=== PATIENT | female | born 1975 | race Caucasian/White ===

== ENCOUNTER 2018-11-11 06:07 | Day surgery (SDC) | payer BC ==
[2018-11-05 14:50] LABS: CLARITY,URINE CLEAR (Clear); COLOR,URINE YELLOW (Yellow); GLUCOSE, URINE NEGATIVE (Neg); KETONES,URINE NEGATIVE (Neg); LEUKOCYTE ESTERASE ,URINE NEGATIVE (Neg); NITRITES, URINE NEGATIVE (Neg); OCCULT BLOOD,URINE NEGATIVE (Neg); PH,URINE 5.5 (4.8-8.0); PROTEIN,URINE NEGATIVE (Neg); UROBILINOGEN,URINE 0.2 E.U/dL (0.2-1.0)
[2018-11-05 14:56] LABS: UA COLLECTION TYPE VOIDED
[2018-11-05 15:24] LABS: BASOPHILS # (AUTO) 0.1 X10'3 (0-0.2); BASOPHILS % (AUTO) 0.7 % (0-1); EOSINOPHILS # (AUTO) 0.1 X10'3 (0-0.9); EOSINOPHILS % (AUTO) 1.1 % (0-6); LYMPHOCYTES # (AUTO) 2.1 X10'3 (1.1-4.8); LYMPHOCYTES % (AUTO) 24.6 % (21-51); MEAN CORPUSCULAR HEMOGLOBIN 29.6 PG (27.0-31.0); MEAN CORPUSCULAR HGB CONC 32.7 g/dL (33.0-36.5); MEAN CORPUSCULAR VOLUME 90.3 FL (78-98); MEAN PLATELET VOLUME 8.5 FL (7.4-10.4); MONOCYTES # (AUTO) 0.3 X10'3 (0-0.9); NEUTROPHILS # (AUTO) 5.9 X10'3 (1.8-7.7); NEUTROPHILS % (AUTO) 70.6 % (42-75); PRE OP HEMATOCRIT 41.3 % (35.0-45.0); PRE OP HEMOGLOBIN 13.5 g/dL (12.0-16.0); PRE OP PLATELET COUNT 309 X10'3 (140-440); RED BLOOD COUNT 4.58 X10'6 (4.20-5.60); RED CELL DISTRIBUTION WIDTH 13.6 % (11.5-14.5)
[2018-11-05 15:35] LABS: ALBUMIN 3.2 G/DL (3.4-5.0); ALBUMIN/GLOBULIN RATIO 0.8 (1.1-1.5); ALKALINE PHOSPHATASE 89 IU/L (46-116); BLOOD UREA NITROGEN 29 MG/DL (7-18); BUN/CREATININE RATIO 37.7 (6.6-38.0); CALCIUM 9.5 MG/DL (8.5-10.1); CHLORIDE 104 MMOL/L (99-107); CREATININE 0.77 MG/DL (0.40-0.90); PRE OP ALT 70 U/L (30-65); PRE OP ANION GAP 7 (8-16); PRE OP AST 67 U/L (10-37); PRE OP BILIRUB, TOTAL 0.4 MG/DL (0.0-1.0); PRE OP GLUCOSE 97 MG/DL (70-104); PRE OP POTASSIUM 3.7 MMOL/L (3.4-5.1); PRE OP SODIUM 141 MMOL/L (135-145); TOTAL CARBON DIOXIDE 29.6 MMOL/L (24-32); TOTAL PROTEIN 7.1 G/DL (6.4-8.2); eGFR 81 ML/MIN
[~2018-11-11] VITALS: Ht 162.6 cm; Wt 51.0 kg
[2018-11-11] VITALS (13 sets, daily range): BP systolic 115–129; BP diastolic 64–89
[~2018-11-11 06:07] MED LIST: ALPR1TAB7 PO; ETHI1TAB25 PO; cefazolin/dext.iso 2gm/100 ML IV ONE; famotidine 20mg tablet PO ONE; ringers solution, lacted 1,000 ML IV SCH
[2018-11-11] MEDS ORDERED: scopolamine 1.5mg patch.TD72 TD ONE (07:00)
[2018-11-11] MEDS ORDERED: methylene blue (5mg/ml) 50mg/10ml ampul IV ONE (07:43)
[2018-11-11] MEDS ORDERED: ROPIVAcaine 0.5% (5mg/ml) 30ml vial ONE (07:43)
[2018-11-11] MEDS ORDERED: sevoflurane 250ml liquid IH ONE (08:18)
[2018-11-11] MEDS ORDERED: fentaNYL/PF 50MCG/1 ML 2ML syringe ONE (08:29)
[2018-11-11] MEDS ORDERED: midazolam 2 mg/2 ml injection ONE (08:29)
[2018-11-11] MEDS ORDERED: propofol inj 20 ML IV ONE (08:30)
[2018-11-11] MEDS ORDERED: LIDOcaine 2% (20mg/ml) 5ml vial ONE (08:30)
[2018-11-11] MEDS ORDERED: dexamethasone sod phosphate 4mg/ml inj. ONE (08:35)
[2018-11-11] MEDS ORDERED: ondansetron/PF 4mg/2ml inj ONE (08:36)
[2018-11-11] MEDS ORDERED: ketorolac trometh. 30mg/ml inj. ONE (08:36)
[2018-11-11] MEDS ORDERED: ringers solution, lacted 1,000 ML IV SCH (08:52)
[2018-11-11] MEDS ORDERED: ondansetron/PF 4mg/2ml inj IV PRN (08:55)
[2018-11-11] MEDS ORDERED: meperidine/PF 25mg/ml syringe IV PRN ×3 (08:55)
[2018-11-11] MEDS ORDERED: morphine 4 MG/ML inj SYRINge IV PRN ×2 (08:55)
[2018-11-11] MEDS ORDERED: proCHLORperazine 10 MG/2 ml inj IV PRN (08:55)
--- NOTE | 2018-11-11 09:20 | NUR ---
Received from OR via bed, accompanied by Anesthesiologist. Report received. Initial physical assessment done and recorded.
--- NOTE | 2018-11-11 10:15 | NUR ---
Up to toilet to attempt to urinate, unable. Sitz bath given some relief obtained. Still unable to void transferred to [facility] until able to void.
--- NOTE | 2018-11-11 10:45 | NUR ---
Transferred to [facility] ([place]), report to Rodri Patricio, Dr. Darling advised. Otherwise stable on transfer.
== END 2018-11-11 12:15 | disposition home or self-care (01) ==
LOC: PAS 06:07
PROVIDERS: ATTEND Surgery
DX: K64.2 Third degree hemorrhoids (principal); Z87.891 Personal history of nicotine dependence; Z72.89 Other problems related to lifestyle; Z79.899 Other long term (current) drug therapy
CPT/HCPCS: 36415; 45330; 46255; 80053; 81003; 82948; 85025; A6224; A6449; J0690; J1100; J1885; J2001; J2250; J2405; J2704; J3010; A7000; J2795; J7120

== ENCOUNTER 2018-11-12 09:11 | Emergency (ER) | payer BC ==
[~2018-11-12] VITALS: Ht 160 cm; Wt 55.5 kg
[~2018-11-12 09:11] MED LIST changes: -cefazolin/dext.iso 2gm/100 ML IV ONE; -famotidine 20mg tablet PO ONE; -ringers solution, lacted 1,000 ML IV SCH
--- NOTE | 2018-11-12 09:44 | NUR ---
CALL PLACED TO DR CRUZ
--- NOTE | 2018-11-12 09:48 | NUR ---
MESSAGE LEFT FOR DR. CRUZ ON CELL PHONE.
[2018-11-12 11:28] VITALS: BP 107/71
== END 2018-11-12 11:32 | disposition home or self-care (01) ==
LOC: ER 09:12
DX: G89.18 Other acute postprocedural pain (principal); K91.89 Other postprocedural complications and disorders of digestive system; Z90.49 Acquired absence of other specified parts of digestive tract; Z79.899 Other long term (current) drug therapy
CPT/HCPCS: 99281; 99283

== ENCOUNTER 2019-06-18 15:19 | Emergency (ER) | payer BC ==
[~2019-06-18] VITALS: Ht 160 cm; Wt 51.8 kg
[2019-06-18 15:21] VITALS: BP 122/73
== END 2019-06-18 16:14 | disposition home or self-care (01) ==
LOC: ER 15:21
DX: R20.0 Anesthesia of skin (principal); R20.2 Paresthesia of skin; R42 Dizziness and giddiness; Z98.890 Other specified postprocedural states; Z79.899 Other long term (current) drug therapy
CPT/HCPCS: 99281

== ENCOUNTER → 2023-11-15 | Outpatient (CLI) | payer OTHER ==
[~2023-11-15] MED LIST changes: +NO HOME MEDS
== END | disposition home or self-care (01) ==
LOC: MRI 13:06
PROVIDERS: ATTEND Family Medicine
DX: S86.911D Strain of unspecified muscle(s) and tendon(s) at lower leg level, right leg, subsequent encounter (principal); X58.XXXD Exposure to other specified factors, subsequent encounter
CPT/HCPCS: 73721

== ENCOUNTER → 2023-12-26 | Outpatient (CLI) | payer OTHER | END | disposition home or self-care (01) | LOC: RAD 16:17 | PROVIDERS: ATTEND Family Medicine | DX: S86.911D Strain of unspecified muscle(s) and tendon(s) at lower leg level, right leg, subsequent encounter (principal); M25.461 Effusion, right knee; X58.XXXD Exposure to other specified factors, subsequent encounter | CPT/HCPCS: 73700 ==